=== PATIENT | male | born 1960 | race Caucasian/White ===

== ENCOUNTER → 2021-02-04 | Day surgery (SDC) | payer OTHER ==
[~2021-02-04] MED LIST: ASPIRIN325 MG PO; CO-ENZYME Q101 EACH PO; COZAAR100 MG PO; LIPITOR20 MG PO; LOPRESSOR50 MG PO; NORVASC5 MG PO; VITAMIN D325 MC1 PO
== END | disposition home or self-care (01) ==
LOC: FAS 07:05
DX: D12.2 Benign neoplasm of ascending colon (principal); D12.3 Benign neoplasm of transverse colon; D12.5 Benign neoplasm of sigmoid colon; K62.1 Rectal polyp; K57.30 Diverticulosis of large intestine without perforation or abscess without bleeding; I25.10 Atherosclerotic heart disease of native coronary artery without angina pectoris; E78.5 Hyperlipidemia, unspecified; I25.2 Old myocardial infarction; I10 Essential (primary) hypertension; G25.81 Restless legs syndrome; Z87.891 Personal history of nicotine dependence; Z95.5 Presence of coronary angioplasty implant and graft; Z79.82 Long term (current) use of aspirin; Z79.899 Other long term (current) drug therapy
CPT/HCPCS: 93005; J2250; J2704; J7120